=== PATIENT | male | born 1940 | race Caucasian/White ===

== ENCOUNTER 2019-09-10 10:02 | Inpatient (IN) ==
[~2019-09-10 10:02] MED LIST: ceFAZolin 1,000 MG, Sodium Chloride IRRigation 1,000 ML IR ONE
[2019-09-10] MEDS ORDERED: CeFAZolin Syr 2,000MG/20 ML 2,000 MG/20 ML SYRINGE IVPB ONE (10:32)
[2019-09-10] MEDS ORDERED: Ringers Solution, Lactated 1,000 ML IVC SCH (10:45)
[2019-09-10] MEDS ORDERED: Acetaminophen IV 1,000 MG/100 ML INFUS..BTL IVPB ONE (10:52)
[2019-09-10] MEDS ORDERED: *HR* Meperidine 25 MG/ML SYRINGE IVP PRN (11:08)
[2019-09-10] MEDS ORDERED: Ondansetron 4 MG/2 ML VIAL IVP ONE (11:08)
[2019-09-10] MEDS ORDERED: *HR* HYDROmorphone PF 0.5 MG/0.5 ML SYRINGE IVP PRN (11:08)
[2019-09-10] MEDS ORDERED: ceFAZolin 1,000 MG, Sodium Chloride IRRigation 1,000 ML IR ONE (12:05)
[2019-09-10] MEDS ORDERED: *HR* Rocuronium Bromide 50 MG/5 ML VIAL ONE (14:34)
[2019-09-10] MEDS ORDERED: Lidocaine -MPF 2% 2 ML VIAL ONE ×2 (14:34→14:48)
[2019-09-10] MEDS ORDERED: Ondansetron 4 MG/2 ML VIAL ONE ×2 (14:34→19:37)
[2019-09-10] MEDS ORDERED: Dexamethasone 4 MG/ML VIAL ONE (14:34)
[2019-09-10] MEDS ORDERED: *HR* Propofol 200 MG/20 ML VIAL IVP ONE ×2 (14:35→16:47)
[2019-09-10] MEDS ORDERED: *HR* FentaNYL (PF) 100 MCG/2 ML VIAL ONE ×2 (14:35→18:42)
[2019-09-10] MEDS ORDERED: Heparin 1,000 UNITS/500 mL 0 ML ONE (14:52)
[2019-09-10] MEDS ORDERED: Isovue-300 150 ML INFUS..BTL ONE (15:23)
[2019-09-10] MEDS ORDERED: Heparin 1,000 UNITS/500 mL 2,000 ML ONE (15:23)
[2019-09-10 15:41] LABS: ABG Base Excess 2 mEq/L (-2 to 3); ABG Chloride 107 mEq/L (98-107); ABG Glucose 92 mg/dL (60-95); ABG HCO3 27 mEq/L (21-27); ABG Ionized Calcium 1.23 mmol/L (1.15-1.35); ABG Oxygen Saturation 96 % (95-98); ABG PCO2 42 mmHg (35-45); ABG PH 7.42 pH Units (7.32-7.45); ABG PO2 84 mmHg (85-104); ABG TCO2 29 mEq/L (20-26)
[2019-09-10] MEDS ORDERED: EPHEDrine 50 MG/ML VIAL ONE (16:26)
[2019-09-10] MEDS ORDERED: *HR* Heparin 5,000 UNIT/ML VIAL ONE ×2 (17:18→18:20)
[2019-09-10] MEDS ORDERED: *HR* PHENYLEPHRINE 1,000 MCG/10 ML SYRINGE IVP ONE (18:07)
[2019-09-10] MEDS ORDERED: *HR* Magnesium Sulfate 1 GM/2 ML VIAL ONE (18:45)
[2019-09-10] MEDS ORDERED: Naloxone 0.4 MG/ML INJ IVP PRN (20:21)
[2019-09-10] MEDS ORDERED: *HR* Labetalol 20 MG/4 ML SYRINGE IVP PRN (20:21)
[2019-09-10] MEDS ORDERED: Ondansetron 4 MG/2 ML VIAL IVP PRN (20:21)
[2019-09-10] MEDS ORDERED: Acetaminophen 325 MG TABLET PO PRN (20:21)
[2019-09-10] MEDS ORDERED: *HR* HYDROcodone/Acet 5/325 mg TABLET PO PRN (20:21)
[2019-09-10] MEDS: Gabapentin 300 MG CAPSULE PO SCH (21:13)
[2019-09-10] MEDS: ceFAZolin 2,000 MG in 0.9 % Sodium Chloride 100 ML IVPB SCH (23:44)
[2019-09-11 02:46] LABS: Basophils % 0.2 %; Eosinophils % 0.1 %; Hematocrit 40.6 % (37.5-50.1); Hemoglobin 13.4 g/dL (12.9-16.9); Immature Granulocytes % 0.3 % (0-4); Lymphocytes # 0.5 K/mcL (0.6-4.6); Lymphocytes % 3.8 %; Mean Corpuscular Hemoglobin 28.8 pg (28.0-33.3); Mean Corpuscular Volume 87.3 fL (83.0-100.0); Mean Platelet Volume 9.7 fL (9.4-12.4); Monocytes # 0.3 K/mcL (0.0-1.3); Monocytes % 2.2 %; Platelet Count 177 K/mcL (140-400); Red Blood Count 4.65 M/mcL (4.19-5.50); Red Cell Distribution Width 14.7 % (11.5-14.5); Segmented Neutrophils % 93.4 %; White Blood Count 11.8 K/mcL (4.3-11.1)
[2019-09-11 03:05] LABS: BUN/Creatinine Ratio 16 (6-26); Blood Urea Nitrogen 16 mg/dL (8-23); Calcium 8.6 mg/dL (8.6-10.3); Carbon Dioxide 25 mEq/L (23-29); Chloride 108 mEq/L (98-107); Glucose 187 mg/dL (70-105); Osmolality,Calculated 290 (280-300); Potassium 4.4 mEq/L (3.5-5.1); Sodium 137 mEq/L (136-145); eGFR For African Americans > 60 (> 60); eGFR For Non-African Americans > 60 (> 60)
[2019-09-11] MEDS: Gabapentin 300 MG CAPSULE PO SCH ×2 (07:49→12:24)
[2019-09-11] MEDS: ceFAZolin 2,000 MG in 0.9 % Sodium Chloride 100 ML IVPB SCH ×2 (07:58→14:56)
[2019-09-11] MEDS ORDERED: Aspirin Enteric Coated 81 MG Tablet PO SCH (09:00)
[2019-09-11] MEDS ORDERED: Lisinopril-HCTZ 20-12.5mg TABLET PO SCH (09:00)
[2019-09-11] MEDS ORDERED: Isosorbide MONOnitrate (24 HR) 30 MG TAB.ER.24H PO SCH (09:00)
[2019-09-11 12:05] VITALS: BP 102/81
== END 2019-09-11 15:59 | disposition home or self-care (01) | DRG 269 ==
LOC: SAMDAY 10:02 → 2NNU 20:20
PROVIDERS: ADMIT Surgery Vascular Surgery; ATTEND Surgery Vascular Surgery